=== PATIENT | female | born 1960 | race Caucasian/White ===

== ENCOUNTER 2023-09-25 06:54 | Outpatient (CLI) | payer BC ==
[2023-09-25] VITALS (11 sets, daily range): BP systolic 97–139; BP diastolic 57–81; PULSE 58–91; TEMP 97.6
[~2023-09-25] VITALS: Ht 172.7 cm; Wt 78.8 kg
[2023-09-25] MEDS ORDERED: PRILOSEC 20MG20 MG PO (07:39)
[2023-09-25] MEDS ORDERED: NEURONTIN300 MG/CAP PO (07:40)
[2023-09-25] MEDS ORDERED: LR 1,000 ML IV SCH (09:00)
--- NOTE | 2023-09-25 09:13 | NUR ---
Refer to [facility] report for procedural sedation/notes
[2023-09-25] MEDS ORDERED: fentaNYL 50 MCG/ML 2 ML VIAL IV SCH (10:01)
[2023-09-25] MEDS ORDERED: Midazolam 2 MG/2 ML VIAL IV SCH (10:01)
--- NOTE | 2023-09-25 10:30 | NUR ---
Pt returned from procedure.Report from ARIAN Mejia.
--- NOTE | 2023-09-25 13:11 | NUR ---
Discharge instructions given to pt.Pt verbalizes understanding.Pt escortedout via wheelchair by this nurse.
== END 2023-09-25 13:16 ==
LOC: COL.CAR 06:54
DX: M80.88XA Other osteoporosis with current pathological fracture, vertebra(e), initial encounter for fracture (principal); M54.9 Dorsalgia, unspecified
CPT/HCPCS: J0665-JZ; J1644; J2250; J3010; J7120